=== PATIENT | female | born 1950 | race Caucasian/White ===

== ENCOUNTER 2016-12-31 05:33 | Day surgery (SDC) | payer MEDICARE, OTHER ==
[~2016-12-31] VITALS: Ht 162.6 cm; Wt 77.0 kg
[~2016-12-31 05:33] MED LIST: ACET325T14 PO; AMLO5TAB2 PO; ASPI-496 PO; ASPI325T4 PO; ATOR10TA9 PO; BISA10SU65 PR; CARV6.252 PO; DIAZ10TA PO; DIAZ5TAB PO; DIAZ5TAB4 PO; ENAL10TA PO; ERGO500017 PO; FURO20TA3 PO; GABA100C8 PO; GABA300C10 PO; HYDR-882 PO; LORA-446 PO; METF500T4 PO; METH750T2 PO; OMEP-110 PO; OXYC-302 PO; OXYC5CAP4 PO; OXYC5TAB3 PO; PARO30TA45 PO; POLY17PO5 PO; POTA10TA31 PO; PREG50CA PO; SENN1TAB7 PO; SENN8.6T98 PO; TEMA15CA6 PO; VITAMIN D2 PO; potassium chloride
[2016-12-31] MEDS ORDERED: LACTATED RINGERS 1,000 ML IV SCH (06:05)
[2016-12-31 06:07] VITALS: BP 144/81
[2016-12-31] MEDS ORDERED: MIDAZOLAM 1 MG/ML, 2ML ONE (06:10)
[2016-12-31] MEDS ORDERED: FENTANYL PF 100 MCG/2ML ONE (06:10)
[2016-12-31] MEDS ORDERED: ROPIvacaine/PF 0.5%, 20 ML ONE (06:11)
[2016-12-31] MEDS ORDERED: OMEPRAZOLE 20 MG CAPSULE.DR PO ONE (06:20)
[2016-12-31] MEDS ORDERED: CARVEDILOL 12.5 MG TABLET PO ONE (06:20)
[2016-12-31] MEDS ORDERED: BUPIVACAINE/PF 0.5% ONE (06:26)
[2016-12-31] MEDS ORDERED: BACITRACIN 50,000 UNIT ONE (06:27)
[2016-12-31] MEDS ORDERED: METOPROLOL 1 MG/ML, 5ML IV PRN (08:00)
[2016-12-31] MEDS ORDERED: ACETAMINOPHEN 325 MG TABLET PO PRN (08:00)
[2016-12-31] MEDS ORDERED: ALBUTEROL/IPRATROPIUM 2.5MG/0.5MG, 3 ML NPPB PRN (08:00)
[2016-12-31] MEDS ORDERED: hydrALAzine 20 MG/ML, 1ML IV PRN (08:00)
[2016-12-31] MEDS ORDERED: PROPOFOL 10 MG/ML, 50ML ONE (15:30)
[2016-12-31] MEDS ORDERED: CEFAZOLIN 1,000 MG ONE (15:30)
== END 2016-12-31 10:40 | disposition home or self-care (01) ==
LOC: OUT 05:33
PROVIDERS: ATTEND Neurological Surgery
DX: G56.21 Lesion of ulnar nerve, right upper limb (principal); I10 Essential (primary) hypertension; E11.9 Type 2 diabetes mellitus without complications; M35.00 Sjogren syndrome, unspecified; I42.9 Cardiomyopathy, unspecified; G43.909 Migraine, unspecified, not intractable, without status migrainosus; Z86.73 Personal history of transient ischemic attack (TIA), and cerebral infarction without residual deficits; K21.9 Gastro-esophageal reflux disease without esophagitis; M19.90 Unspecified osteoarthritis, unspecified site; M06.9 Rheumatoid arthritis, unspecified; Z90.49 Acquired absence of other specified parts of digestive tract; Z98.51 Tubal ligation status; Z98.1 Arthrodesis status; Z82.61 Family history of arthritis; Z83.3 Family history of diabetes mellitus; Z81.8 Family history of other mental and behavioral disorders; Z82.49 Family history of ischemic heart disease and other diseases of the circulatory system; Z87.891 Personal history of nicotine dependence; Z72.89 Other problems related to lifestyle
CPT/HCPCS: 64718; 64721; 82962; J0690; J2250; J2704; J2795; J3010; J3490; J7120